=== PATIENT | male | born 1985 | race American Indian/Alaskan Native ===

== ENCOUNTER 2020-05-30 08:00 | Emergency (ER) | payer SELFPAY ==
[~2020-05-30] VITALS: Ht 177.8 cm; Wt 120.2 kg
[2020-05-30 08:04] VITALS: BP 133/79
[2020-05-30 08:40] VITALS: BP 133/79
== END 2020-05-30 08:41 | disposition home or self-care (01) ==
LOC: MED 08:00
DX: U07.1 COVID-19 (principal); F17.200 Nicotine dependence, unspecified, uncomplicated
CPT/HCPCS: 99283; U0003